=== PATIENT | female | born 1995 | race Two or more races ===

== ENCOUNTER 2025-05-11 19:01 | Emergency (ER) | payer OTHER ==
[~2025-05-11] VITALS: Ht 165.1 cm; Wt 115.0 kg
--- NOTE | 2025-05-11 21:58 | DVH ---
Exam: CT CT AB PEL WO CON-NO ORAL OR IV History: ABD PAIN N/V Comparison Study: None Technique: Multidetector spiral CT of the abdomen was performed from lung bases to pubic symphysis. Imaging was performed without IV contrast. Axial, coronal and sagittal multiplanar reformats were obtained from the axial data set by the technologist. Radiation Dose : 1. Abdomen/Pelvis: CTDIvol 27.33 mGy, DLP 1503.13 mGy*cm. Findings: Evaluation of solid organs is limited due to lack of intravenous contrast use. Lung Bases: No acute or significant lung base finding. Normal heart size. No pleural or pericardial effusion. Liver: The liver is normal in size. No focal lesions. Hepatic steatosis. Gallbladder and Biliary Tree: Unremarkable Spleen: Unremarkable Pancreas: The pancreas is grossly normal in appearance. Adrenal Glands: Unremarkable Kidneys: Kidneys are grossly normal without calculi or hydronephrosis. Bladder: Grossly unremarkable for degree of distention. Bowel: The stomach is grossly normal in appearance. Small bowel and colon are normal in caliber and distribution. The appendix is not visualized; however, no secondary findings of acute appendicitis identified. Ascites: Absent Lymphadenopathy: No mesenteric, retroperitoneal or periportal lymphadenopathy. Abdominal Wall and Mesentery: Unremarkable. Vasculature: The visualized abdominal aorta is normal in size and caliber. Evaluation of abdominal and pelvic vessels is limited due to lack of intravenous contrast. Pelvic Organs: Unremarkable Musculoskeletal: No aggressive focal bony lesions, acute fractures or dislocation. IMPRESSION: No acute abdominal or pelvic findings. Radiation optimization: All CT scans at this facility use at least one of these dose optimization techniques: automated exposure control mA and/or kV adjustment per patient size (includes targeted exams where dose is matched to clinical indication) or iterative reconstruction.
--- NOTE | 2025-05-11 22:02 | ED.PDOC ---
GI ASSESSMENT HPI Comments 29 y.o female presents to the ED for a chief complaint of periumbilical pain associated with tingling sensation to bilateral hands, face and feet x 5:30am. Patient reports having about 4 episodes of vomiting today but states nausea/vomiting have since resolved. She states hx of gastritis developed due to childhood gastro surgeries. She denies any diarrhea, fever, chills, hematemesis. Vitals: Temp: 98.4 F BP: 152/100 HR: 99 RR: 25 SPO2: 99% RA Past medical history: HTN (has been off her BP since December 2024), and gastritis (since childhood) Past surgical history: Childhood gastro surgeries, bilateral femur fractures Allergies: Vicodin, acetaminophen and hydrocodone Cee: gastritis, n/v tingling. Obese, Hypertension noncompliant with the medications. HPI: Poor Historian. REVIEW OF SYSTEMS: CONSTITUTIONAL: Denies acute: fever, diaphoresis, chills, generalized weakness. HEAD: Denies acute: headache, photophobia Eyes: Denies acute: Double vision, vision loss, eye pain, eye discharge. EARS: Denies acute: tinnitus, hearing loss, ear discharge, ear pain, THROAT: Denies acute: sore throat, swelling, difficulty swallowing , pain with swallowing, change in voice. NECK: Denies acute: neck pain, neck swelling, stiff neck. HEART: Denies acute : chest pain, palpitations, LUNGS: Denies acute: SOB, wheezing, cough, hemoptysis ABDOMEN: Denies acute: diarrhea, melena , hematemesis, hematochezia SKIN: Denies acute: rash, redness, lesions, itchiness. EXTREMITIES: Denies acute: calf pain, numbness, tingling, weakness, denies pain in extremity. Denies acute: Low back pain. Neuro: Denies acute: focal neurological deficit, motor or sensory focal neurological deficit, tremors, seizure like activity, confusion, dizziness, change in mental status, loss of bowel or bladder function, cauda equina like symptoms. : Denies acute: dysuria, hematuria, flank pain, increase in urinary frequency. PSYCH: Denies acute: hallucination, suicidal ideation, homicidal ideation. FEMALE: Denies acute: abnormal vaginal bleeding, foul odor, unusual discharge. PHYSICAL EXAM: General: ---mild-----acute distress, awake and alert. Head: normocephalic, atraumatic. No raccoon's eyes, no delarosa sign. Neck: supple, trachea is midline, no swelling. Throat: Normal phonation. Eyes:, no erythema, no purulent discharge, no proptosis, no icterus. Heart: regular rate, regular rhythm, no significant murmur appreciated. Lungs: no apparent respiratory distress, Able to speak in full sentences. No wheezing, no rhonchi, no crackles. No stridors Clear to auscultation bilaterally. Abdomen: above the umbilical midline focal tenderness to palpation. non distended, soft, no guarding, no rebound, + bowel sounds. Morbidly obese Neuro: Awake, Alert, oriented to name, self, situation, follows commands GCS=15. Speech is normal. Skin: no petechia, no purpura, no cyanosis, non-pale, not jaundice. Lower extremities: --no - Pitting edema no deformity, no focal swelling, no calf TTP. Makes eye contact. moves all four extremities. Face: no apparent facial droop. Ambulating in the ED independently. ED COURSE: DISCLAIMER: This medical document was created using an electronic medical record system with voice recognition software and computerized dictation system. Although this document has been carefully reviewed, there might still be some phonetic and typographical errors. Occasional wrong-word or "sound-alike" substitutions may have occurred due to the inherent limitations of voice recognition software. These areas are purely typographical due to imperfections of the software programs and do not reflect any compromise in the patient's medical care. Please read the chart carefully and recognize, using context, where these substitutions have occurred. Chief Complaint: Abdominal Pain Time Seen by MD: 21:50 Reviewed Notes: Nurses Notes, Medications, Allergies Allergies: Coded Allergies: Acetaminophen (Verified Allergy, Unknown, 05/11/25) Hydrocodone (Verified Allergy, Unknown, 05/11/25) Home Meds Active Scripts Ondansetron Odt 4MG Tab (ZOFRAN PO) 4 Mg Tb, 4 MG PO Q8HPRN PRN for 3 Days, #9 TAB ODT TAB-DISSOLVE IN MOUTH, THEN SWALLOW Prov:SOHEILA HOLDEN DO 05/12/25 Nitrofurantoin Monohydrate Mac (Macrobid) 100 Mg Cap, 100 MG PO BID for 7 Days, #14 CAP Prov:SOHEILA HOLDEN DO 05/12/25 Information Source: Patient Mode of Arrival: Ambulatory Timing: Hours Duration: Since onset Past Medical History PAST MEDICAL HISTORY: HTN Past Medical History (Other): gastritis Surgical History (Other): extensive GI sx and bilateral femur fractures Family History Family History: Reviewed,noncontributory to illness Social History Smoker: Non-Smoker Alcohol: Denies ETOH Use Drugs: Denies Drug Use Lives In: Home Was a procedure done? Was a procedure done?: No GI differential Dx Differential Diagnosis: Esophagitis, Gastritis/PUD, Gastroenteritis, Electrolyte Imbalance, Parasitic, Viral, Other (DDX include Diverticulitis, colitis, gastroenteritis, acute abdomen, SBO, enteritis, constipation, volvulus, appendicitis, Gallbladder disease, choledocolithiasis, ascending cholangitis, pancreatitis, intraAbdominal mass/neoplasm, hepatitis, UTI, pylonephritis, kidney stone, aneurysm, dissection, Inflammatory bowel disease, gastroparesis, ischemic bowel,,,,,,Food poisoning, bacterial/parasitic/viral etiology, trauma, diabetes DKA,ovarian torsion, ovarian cyst/mass, tubo-ovarian abscess, , ectopic , PID, STD.) X-Ray, Labs, Meds, VS Vital Signs Date Time Temp Pulse Resp B/P (MAP) Pulse Ox O2 Delivery O2 Flow Rate FiO2 05/11/25 22:52 99 142/99 (113) 05/11/25 22:51 142/99 05/11/25 22:34 166/115 05/11/25 22:13 105 22 97 Room Air 05/11/25 22:13 98.4 105 22 166/115 (132) 97 98.4 05/11/25 22:13 166/115 05/11/25 19:03 98.4 99 25 152/100 99 98.4 Lab Test 05/11/25 22:41 05/11/25 21:50 Range/Units Urine Color Yellow Yellow Urine Clarity Clear Clear Urine pH 6.5 5.0-9.0 Urine Specific [place] 1.023 1.001-1.035 Urine Protein Trace H Negative Urine Ketones 2+ H Negative Urine Blood 1+ H Negative /uL Urine Nitrite Negative Negative Urine Bilirubin Negative Negative Urine Urobilinogen Normal Negative mg/dL Urine Leukocyte Esterase 1+ Negative /uL Urine RBC 3 0 - 4 /hpf Urine Microscopic WBC 7 H 0-5 /HPF Urine Squamous Epithelial Cells Few <5 /hpf Urine Bacteria Few H None Seen /hpf Urine Mucus Few None Seen Urine Glucose Normal Normal mg/dL Urine Opiates Screen Neg NEGATIVE Urine Fentanyl Screen Neg NEGATIVE Urine Barbiturates Screen Neg NEGATIVE Urine Phencyclidine Screen Neg NEGATIVE Urine Amphetamines Screen Neg NEGATIVE Urine Benzodiazepines Screen Neg NEGATIVE Urine Cocaine Screen Neg NEGATIVE Urine Cannabinoids Screen Neg NEGATIVE White Blood Count 15.2 H 4.4-10.8 10^3/uL Red Blood Count 5.36 H 4.0-5.20 10^6/uL Hemoglobin 14.9 12.2-16.2 g/dL Hematocrit 43.6 36.0-46.0 % Mean Corpuscular Volume 81.3 80.0-100.0 fL Mean Corpuscular Hemoglobin 27.8 L 28.0-32.0 pg Mean Corpuscular Hemoglobin Concent 34.1 32.0-36.0 g/dL Red Cell Distribution Width 14.4 H 11.8-14.3 % Platelet Count 432 140-450 10^3/uL Mean Platelet Volume 8.0 6.9-10.8 fL Neutrophils (%) (Auto) 77.7 37.0-80.0 % Lymphocytes (%) (Auto) 18.8 10.0-50.0 % Monocytes (%) (Auto) 3.3 0.0-12.0 % Eosinophils (%) (Auto) 0.0 0.0-7.0 % Basophils (%) (Auto) 0.2 0.0-2.0 % Neutrophils # (Auto) 11.8 H 1.6-8.6 10 ^3/uL Lymphocytes # (Auto) 2.9 0.4-5.4 10 ^3/uL Monocytes # (Auto) 0.5 0-1.3 10 ^3/uL Eosinophils # (Auto) 0 0-0.8 10 ^3/uL Basophils # (Auto) 0 0-0.2 10 ^3/uL Nucleated Red Blood Cells 0.0 % Sodium Level 141 136-145 mmol/L Potassium Level 3.7 3.5-5.1 mmol/L Chloride Level 102 98-107 mmol/L Carbon Dioxide Level 22 20-31 mmol/L Anion Gap 17 H 5-15 Blood Urea Nitrogen 13 9-23 mg/dL Creatinine 0.67 0.550-1.02 mg/dL Glomerular Filtration Rate Calc 120 >90 mL/min BUN/Creatinine Ratio 19.4 10.0-20.0 Serum Glucose 147 H 74-106 mg/dL Lactic Acid Level 1.2 0.4-2.0 mmol/L Calcium Level 9.6 8.7-10.4 mg/dL Total Bilirubin 1.0 0.2-1.0 mg/dL Aspartate Amino Transferase (AST) 30 13-40 U/L Alanine Aminotransferase (ALT) 52 H 7-40 U/L Alkaline Phosphatase 81 46-116 U/L Total Protein 8.0 5.7-8.2 g/dL Albumin 4.7 3.2-4.8 g/dL Lipase 32 12-53 U/L Plasma/Serum Blood Alcohol < 3.0 <10 mg/dL Current Medications Medications (Trade) Dose Ordered Sig/Jose Route Start Time Stop Time Status Last Admin Sodium Chloride 1,000 ml @ 1,000 mls/hr Q1H ONCE IV 05/11/25 21:30 05/11/25 22:29 DC 05/11/25 22:54 Ondansetron HCl (Zofran) 8 mg ONCE ONCE IV 05/11/25 21:30 05/11/25 21:31 DC 05/11/25 22:33 Sucralfate (Carafate Tab) 1 gm ONCE ONCE PO 05/11/25 21:30 05/11/25 21:31 DC 05/11/25 22:13 Pantoprazole Sodium (Protonix Tablet) 40 mg ONCE ONCE PO 05/11/25 21:30 05/11/25 21:31 DC 05/11/25 22:13 Lidocaine HCl (Xylocaine 2% Viscous) 10 ml ONCE ONCE PO 05/11/25 21:30 05/11/25 21:31 DC 05/11/25 22:13 Nitroglycerin (Ntrostat Sublingual) 0.4 mg ONCE ONCE SL 05/11/25 22:15 05/11/25 22:16 DC 05/11/25 22:13 Hydralazine HCl (Apresoline Injection) 5 mg ONCE ONCE IV 05/11/25 22:15 05/11/25 22:16 DC 05/11/25 22:[address] [address] Ph: [phone] DIAGNOSTIC IMAGING Diagnostic Imaging Report : [id number] Signed PATIENT: SIM CEE ACCT: [id number] UNIT: [id number] : 1995 LOC: ER ROOM / BED: / AGE / SEX: 29 / F ADM STATUS: REG ER SERVICE 15 ORDERING PHYSICIAN: SOHEILA HOLDEN DO PROCEDURE(s): ABPL - CT AB PEL WO CON-NO ORAL OR IV REASON: ABD PAIN N/V ORDER NUMBER(s): [id number], ACCESSION NUMBER(s): [id number] Exam: CT CT AB PEL WO CON-NO ORAL OR IV History: ABD PAIN N/V Comparison Study: None Technique: Multidetector spiral CT of the abdomen was performed from lung bases to pubic symphysis. Imaging was performed without IV contrast. Axial, coronal and sagittal multiplanar reformats were obtained from the axial data set by the technologist. Radiation Dose : 1. Abdomen/Pelvis: CTDIvol 27.33 mGy, DLP 1503.13 mGy*cm. Findings: Evaluation of solid organs is limited due to lack of intravenous contrast use. Lung Bases: No acute or significant lung base finding. Normal heart size. No pleural or pericardial effusion. Liver: The liver is normal in size. No focal lesions. Hepatic steatosis. Gallbladder and Biliary Tree: Unremarkable Spleen: Unremarkable Pancreas: The pancreas is grossly normal in appearance. Adrenal Glands: Unremarkable Kidneys: Kidneys are grossly normal without calculi or hydronephrosis. Bladder: Grossly unremarkable for degree of distention. Bowel: The stomach is grossly normal in appearance. Small bowel and colon are normal in caliber and distribution. The appendix is not visualized; however, no secondary findings of acute appendicitis identified. Ascites: Absent Lymphadenopathy: No mesenteric, retroperitoneal or periportal lymphadenopathy. Abdominal Wall and Mesentery: Unremarkable. Vasculature: The visualized abdominal aorta is normal in size and caliber. Evaluation of abdominal and pelvic vessels is limited due to lack of intravenous contrast. Pelvic Organs: Unremarkable Musculoskeletal: No aggressive focal bony lesions, acute fractures or dislocation. IMPRESSION: No acute abdominal or pelvic findings. Radiation optimization: All CT scans at this facility use at least one of these dose optimization techniques: automated exposure control mA and/or kV adjustment per patient size (includes targeted exams where dose is matched to clinical indication) or iterative reconstruction. ATED BY: JUNAID CRAIG MD DICTATED DATE/TIME: 05/11/252155 SIGNED BY: JUNAID CRAIG MD SIGNED DATE/TIME: 05/11/252155 CC: Time of 1ST Reevaluation: 21:55 Reevaluation 1ST: Unchanged Patient Education/Counseling: Diagnosis, Treatment Family Education/Counseling: No Family Present Departure 1 Departure Time of Disposition: 00:05 Impression: Primary Impression: Recurrent abdominal pain Additional Impressions: UTI (urinary tract infection) Hypertension Disposition: HOME / SELF CARE / HOMELESS Condition: Stable Additional Instructions: Additional instructions: Please read all instructions provided in this packet carefully. You MUST follow-up with your primary care/family doctor in 1 to 2 days. If you are unable to see your primary care/family doctor, please return to our emergency room for re-assessment and re-evaluation in 1 to 2 days. Return to the emergency room here in our facility or to the nearest ER [facility] if your symptoms change or worsen. CONSULTATIONS: you MUST Follow-up for consultation as soon as possible with: -gastroenterology in 1-2 days. Please call for appointment. You MUST call the consultants office yourself to make an appointment. You may need to arrange that through your insurance and/or your primary/family doctor. If you are unable to see the [employer] consultant in 1 to 2 days, you must return to our emergency room (or any other ER of your choice) for re-assessment and re- evaluation. Adequate fluid hydration. Although you have been discharged from the Emergency Department, this does not mean that you have a "clean bill of health". No definitive diagnosis for your symptoms has been made today. It is possible that you are in the process of developing a serious illness. This is why you must return to the ED without fail if any new or worsening symptoms develop. Avoid fatty greasy spicy food. Avoid caffeinated products. Avoid NSAIDs. Please monitoring blood pressure at home at least 3 times a day and start taking blood pressure medications prescribed to you. Below is a copy of your radiological report for follow up: [facility] [id number] [facility] [address] Ph: [phone] DIAGNOSTIC IMAGING Diagnostic Imaging Report : [id number] Signed PATIENT: SIM CEE ACCT: [id number] UNIT: [id number] : 1995 LOC: ER ROOM / BED: / AGE / SEX: 29 / F ADM STATUS: REG ER SERVICE 15 ORDERING PHYSICIAN: SOHEILA HOLDEN DO PROCEDURE(s): ABPL - CT AB PEL WO CON-NO ORAL OR IV REASON: ABD PAIN N/V ORDER NUMBER(s): [id number], ACCESSION NUMBER(s): [id number] Exam: CT CT AB PEL WO CON-NO ORAL OR IV History: ABD PAIN N/V Comparison Study: None Technique: Multidetector spiral CT of the abdomen was performed from lung bases to pubic symphysis. Imaging was performed without IV contrast. Axial, coronal and sagittal multiplanar reformats were obtained from the axial data set by the technologist. Radiation Dose : 1. Abdomen/Pelvis: CTDIvol 27.33 mGy, DLP 1503.13 mGy*cm. Findings: Evaluation of solid organs is limited due to lack of intravenous contrast use. Lung Bases: No acute or significant lung base finding. Normal heart size. No pleural or pericardial effusion. Liver: The liver is normal in size. No focal lesions. Hepatic steatosis. Gallbladder and Biliary Tree: Unremarkable Spleen: Unremarkable Pancreas: The pancreas is grossly normal in appearance. Adrenal Glands: Unremarkable Kidneys: Kidneys are grossly normal without calculi or hydronephrosis. Bladder: Grossly unremarkable for degree of distention. Bowel: The stomach is grossly normal in appearance. Small bowel and colon are normal in caliber and distribution. The appendix is not visualized; however, no secondary findings of acute appendicitis identified. Ascites: Absent Lymphadenopathy: No mesenteric, retroperitoneal or periportal lymphadenopathy. Abdominal Wall and Mesentery: Unremarkable. Vasculature: The visualized abdominal aorta is normal in size and caliber. Evaluation of abdominal and pelvic vessels is limited due to lack of intravenous contrast. Pelvic Organs: Unremarkable Musculoskeletal: No aggressive focal bony lesions, acute fractures or dislocation. IMPRESSION: No acute abdominal or pelvic findings. Radiation optimization: All CT scans at this facility use at least one of these dose optimization techniques: automated exposure control mA and/or kV adjustment per patient size (includes targeted exams where dose is matched to clinical indication) or iterative reconstruction. ATED BY: JUNAID CRAIG MD DICTATED DATE/TIME: 05/11/252155 SIGNED BY: JUNAID CRAIG MD SIGNED DATE/TIME: 05/11/252155 CC: e-Prescriptions Ondansetron Odt 4MG Tab (ZOFRAN PO) 4 Mg Tb 4 MG PO Q8HPRN PRN for 3 Days, #9 TAB ODT TAB-DISSOLVE IN MOUTH, THEN SWALLOW Prov: SOHEILA HOLDEN DO 05/12/25 Nitrofurantoin Monohydrate Mac (Macrobid) 100 Mg Cap 100 MG PO BID for 7 Days, #14 CAP Prov: SOHEILA HOLDEN DO 05/12/25 Discharged With: Self Critical Care Note Critical Care Time?: No I personally scribed for SOHEILA HOLDEN DO ([email or web address]) on 05/11/25 at 22:02. Electronically submitted by Michael Patel ([email or web address]). I personally scribed for SOHEILA HOLDEN DO ([email or web address]) on 05/11/25 at 22:09. Electronically submitted by Michael Patel ([email or web address]). SOHEILA HOLDEN DO May 11, 2025 22:02
[2025-05-11] MEDS ORDERED: PANTOPRAZOLE 40 MG TAB PO ONE (22:11)
[2025-05-11] MEDS ORDERED: LIDOCAINE VISCOUS 2% 15ML UD ONE (22:11)
[2025-05-11] MEDS ORDERED: SUCRALFATE 1 GM TAB PO ONE (22:11)
[2025-05-11 22:13] VITALS: RESP 22; TEMP 98.4; O2SAT 97
[2025-05-11 22:13] LABS: Hematocrit 43.6 % (36.0-46.0); Hemoglobin 14.9 g/dL (12.2-16.2); Mean Corpuscular Hemoglobin 27.8 pg (28.0-32.0); Mean Corpuscular Volume 81.3 fL (80.0-100.0); Nucleated Red Blood Cells % 0.0 %
[2025-05-11] MEDS: SUCRALFATE 1 GM TAB PO ONE (22:13)
[2025-05-11] MEDS: LIDOCAINE VISCOUS 2% 15ML UD PO ONE (22:13)
[2025-05-11] MEDS: PANTOPRAZOLE 40 MG TAB PO ONE (22:13)
[2025-05-11] MEDS: NITROGLYCERIN 0.4 MG SL TAB SL ONE (22:13)
[2025-05-11] MEDS ORDERED: hydrALAZINE HCL 20 MG/ML VL ONE (22:19)
[2025-05-11] MEDS ORDERED: ONDANSETRON HCL 4 MG/2 ML VIAL ONE (22:19)
[2025-05-11 22:31] LABS: Albumin 4.7 g/dL (3.2-4.8); Alkaline Phosphatase 81 U/L (46-116); Anion Gap 17 (5-15); BUN/Creatinine Ratio 19.4 (10.0-20.0); Bilirubin, Total 1.0 mg/dL (0.2-1.0); Blood Urea Nitrogen 13 mg/dL (9-23); Calcium 9.6 mg/dL (8.7-10.4); Carbon Dioxide 22 mmol/L (20-31); Chloride 102 mmol/L (98-107); Potassium 3.7 mmol/L (3.5-5.1); Sodium 141 mmol/L (136-145); Total Protein 8.0 g/dL (5.7-8.2)
[2025-05-11] MEDS: ONDANSETRON HCL 4 MG/2 ML VIAL IV ONE (22:33)
[2025-05-11 22:34] LABS: Alanine Aminotransferase 52 U/L (7-40); Glucose 147 mg/dL (74-106)
[2025-05-11] MEDS: hydrALAZINE HCL 20 MG/ML VL IV ONE (22:34)
[2025-05-11 22:49] LABS: Urine Protein, UAD TRACE (Negative)
[2025-05-11 22:52] VITALS: BP 142/99; PULSE 99
[2025-05-11 22:53] LABS: Lipase 32 U/L (12-53)
[2025-05-11] MEDS: SODIUM CHLORIDE 0.9% 1,000 ML IV ONE (22:54)
[2025-05-11 23:09] LABS: Cannabinoid Screen, Urine Neg (NEGATIVE)
[2025-05-11 23:11] LABS: Amphetamine Screen, Urine Neg (NEGATIVE); Barbiturate Scree,Urine Neg (NEGATIVE); Benzodiazephine Screen, Urine Neg (NEGATIVE); Cocaine Screen, Urine Neg (NEGATIVE); Opiate Scree,Urine Neg (NEGATIVE); Phencyclidine Screen, Urine Neg (NEGATIVE)
[2025-05-12] MEDS ORDERED: ZOFR4T PO (00:08)
[2025-05-12] MEDS ORDERED: NITR-87 PO (00:08)
== END 2025-05-12 00:32 | disposition home or self-care (01) ==
LOC: ER 19:01
DX: R10.33 Periumbilical pain (principal); N39.0 Urinary tract infection, site not specified; I10 Essential (primary) hypertension; R11.2 Nausea with vomiting, unspecified; E86.0 Dehydration; Z87.19 Personal history of other diseases of the digestive system; Z88.5 Allergy status to narcotic agent; Z20.822 Contact with and (suspected) exposure to COVID-19; Z79.899 Other long term (current) drug therapy
CPT/HCPCS: 36415; 74176; 80053; 80307; 80320; 81001; 83605; 83690; 85025; 96361; 96374; 96375; 99285; J0360; J2405; J7030